=== PATIENT | female | born 1980 | race Caucasian/White ===

== ENCOUNTER 2019-03-17 19:32 | Emergency (ER) | payer OTHER, SELFPAY ==
[2019-03-17 19:49] VITALS: BP 93/52; PULSE 96; RESP 14; TEMP 37.3; O2SAT 97
[2019-03-17 20:00] VITALS: BP 118/72; PULSE 85; RESP 14; O2SAT 100
--- NOTE | 2019-03-17 20:07 | ED.GENADULT ---
HPI - General Adult General Chief complaint: Nausea/Vomiting/Diarrhea Stated complaint: vomitting, congested, headache, nauseous Source: patient Mode of arrival: ambulatory Limitations: no limitations History of Present Illness HPI narrative: Sore throat and cough, onset 8 days ago, nasal congestion x 5 days. Frontal pressure pain x 2 days, getting progressively worse, currently #10/10 associated with photophobia, assoc. with PND and clear - sometimes green nasal d.c. Nausea and vomiting x 10 today. C/o being thirsty, lightheaded with standing and not urinating since this AM. Quality: aching Pain Consistency: constant Related Data Home Medications Medication Instructions Recorded Confirmed levonorgestrel [Mirena] 1 device INTRAUTERINE DAILY 03/17/19 03/17/19 Allergies Allergy/AdvReac Type Severity Reaction Status Date / Time Penicillins Allergy Intermediate Hives Verified 03/17/19 19:47 Review of Systems Constitutional: Constitutional: Reports as per HPI Eyes: Eyes: Reports as per HPI ENT: Comments: no current sore throat. Respiratory: Respiratory: Denies dyspnea and Denies wheezing Gastrointestinal: Gastrointestinal: Denies abdominal pain and Denies diarrhea Genitourinary: Genitourinary: Denies dysuria Integumentary/Breasts: Skin/Breast: Denies rash Neurologic: Denies syncope Hematologic/Lymphatic: Hematologic/Lymphatic: Denies easy bruising PMFSH Past Medical History Medical History Cholecystectomy planned History of frequent headaches Family History Family History Mother Hypertension Father Hyperlipidemia Social History Social History Smoking packs per day: 1 Smoking cigarettes per day: 20.0 Years smoked: 26 Smoking pack-years: 26.00 Smoking status: Current every day smoker Exam Const: General: ill appearing HENMT: Ears: TM normal on the right and TM normal on the left General nose exam: no nasal discharge noted Face and sinus: sinus tenderness maxillary Mouth: Yes Normal oral and palatal mucosa present Throat: posterior oropharynx normal Eyes: Conjunctivae: conjunctivae normal Neck: Neck: no lymphadenopathy Chest: Chest palpation & inspection: normal inspection of the chest Resp: Auscultation: clear to auscultation bilaterally GI: GI Palp: Yes Soft to palpation, No Tenderness to palpation present (GI) and No Guarding due to palpation present (GI) : General: Yes no CVA tenderness Skin: General skin exam: normal color Rashes: no rashes Course Course Emergency Course: Dehydration - IVF Sinusitis - po doxycyline. headache on d.c. #7/10. Vital Signs Vital signs: Vital Signs Temperature 37.3 C 03/17/19 19:49 Pulse Rate 96 03/17/19 19:49 Respiratory Rate 14 03/17/19 19:49 Blood Pressure 93/52 L 03/17/19 19:49 Pulse Oximetry 97 03/17/19 19:49 Temperature 37.3 C 03/17/19 19:49 Pulse Rate 73 03/17/19 22:00 Respiratory Rate 15 03/17/19 22:13 Blood Pressure 108/59 L 03/17/19 22:00 Pulse Oximetry 97 03/17/19 22:13 Medical Decision Making Differential Diagnosis Differential Diagnosis: URI, sinusitis, migraine headache Vital Signs Vital Signs: Vital Signs Temperature 37.3 C 03/17/19 19:49 Pulse Rate 96 03/17/19 19:49 Respiratory Rate 14 03/17/19 19:49 Blood Pressure 93/52 L 03/17/19 19:49 Pulse Oximetry 97 03/17/19 19:49 Temperature 37.3 C 03/17/19 19:49 Pulse Rate 73 03/17/19 22:00 Respiratory Rate 15 03/17/19 22:13 Blood Pressure 108/59 L 03/17/19 22:00 Pulse Oximetry 97 03/17/19 22:13 Discharge Plan Discharge Clinical Impression: Sinusitis, acute maxillary Patient Disposition: Home, Self-Care Condition: Stable Instructions: Antibiotic Form, Sinusitis (ED) Additional Instructions: Sinus irrigatio
[2019-03-17] MEDS: ONDANSETRON INJ 4 MG/2 ML VIAL IV PUSH (20:12)
[2019-03-17] MEDS: SODIUM CHLORIDE 0.9% IV 1,000 ML 999 ML IV CONT ×2 (20:12→21:13)
[2019-03-17] MEDS: DOXYCYCLINE HYCLATE 100 MG TABLET PO (20:13)
[2019-03-17 21:00] VITALS: BP 105/69; PULSE 65; RESP 15; O2SAT 100
[2019-03-17 22:00] VITALS: BP 108/59; PULSE 73; RESP 14; O2SAT 100
[2019-03-17 22:13] VITALS: RESP 15; O2SAT 97
== END 2019-03-17 22:14 | disposition home or self-care (01) ==
PROVIDERS: Emergency Provider Family Medicine
DX: J01.00 Acute maxillary sinusitis, unspecified (principal)
CPT/HCPCS: 96361; 96374; 99283; 99284; A9270; J2405; J7030

== ENCOUNTER 2020-02-11 12:26 | Emergency (ER) | payer OTHER, SELFPAY ==
[2020-02-11 12:30] VITALS: BP 125/70; PULSE 74; RESP 13; TEMP 37.1; O2SAT 99
--- NOTE | 2020-02-11 12:36 | ED.BACK ---
HPI - Back Pain/Injury General Chief Complaint: Back Pain/Injury Stated Complaint: back pain Time Seen by Provider: 02/11/20 12:36 Source: patient and RN notes reviewed Mode of arrival: ambulatory Limitations: no limitations History of Present Illness HPI Narrative: patient presents with sudden onset of back pain yesterday. She feels like it is completely across her back but right greater than left. She denies any trauma. MD elicited complaint: back pain Pertinent past history: prior back pain and arthritis Onset (ago): day(s) (1) Timing: constant Severity: severe Similar Symptoms Previously: Yes Quality: dull, aching and spasming Location: right lower back and left lower back Radiation: buttocks Exacerbating factors: movement, walking and lifting Relieving factors: sitting upright Context: bending Associated symptoms: denies other symptoms Work related injury: No Related Data Home Medications Medication Instructions Recorded Confirmed levonorgestrel [Mirena] 1 device INTRAUTERINE DAILY 03/17/19 02/11/20 Allergies Allergy/AdvReac Type Severity Reaction Status Date / Time Penicillins Allergy Intermediate Hives Verified 06/24/19 11:58 Review of Systems Review of Systems: All systems reviewed & are unremarkable except as noted in HPI and below PMFSH Past Medical History Medical History (Updated 02/11/20 @ 13:15 by Feng Zhou MD) Degenerative disc disease History of frequent headaches Nicotine dependence, cigarettes, uncomplicated Surgical History Surgical History Hx of cholecystectomy Family History Family History Mother Hypertension Father Hyperlipidemia Social History Social History Smoking packs per day: 1 Smoking cigarettes per day: 20.0 Years smoked: 26 Smoking pack-years: 26.00 Smoking status: Current every day smoker Exam Const: General: healthy appearing and no acute distress Nutritional Appearance: well nourished Orientation/consciousness: patient oriented x3 Other: female nurse in room during exam HENMT: Head: normal to inspection Ears: external ears normal General nose exam: Normal external nose present Face and sinus: normal facial exam Mouth: Yes lip normal and Yes moist mucous membranes Eyes: Conjunctivae: conjunctivae normal Pupils: Equal, round and reactive pupils present EOM: EOMs intact bilaterally Neck: Neck: normal visual inspection Resp: Effort & Inspection: normal respiratory effort Auscultation: clear to auscultation bilaterally Cardio: Rate: regular rate Rhythm: regular rhythm GI: GI Palp: Yes Soft to palpation and No Tenderness to palpation present (GI) Auscultation: normal bowel sounds Back/Spine/Pelvis: Cervical Spine: cervical ROM normal Thoracic/Lumbar Spine: straight leg raise negative bilaterally, thoraco-lumbar ROM limited with lateral flexion to the left and with rotation to the left, thoraco-lumbar spasm on the right in the lower lumbar and No lumbar spinal tenderness Skin: General skin exam: normal color Rashes: no rashes Neuro: General: patient oriented x3, moves all extremities and no focal motor deficits Speech: normal speech Gait exam (Neuro): Normal gait present Extrem: General: normal to inspection and no clubbing, cyanosis or edema Psych: Appearance: grossly normal and well kempt Mental Status: mental status grossly normal Affect: normal affect Attitude: cooperative Thought content: Yes Normal thought content present Course Course Emergency Course: I explained the patient without any history of trauma that x-rays would not be beneficial. I recommend that she see primary care for further evaluation possible physical therapy. Vital Signs Vital signs: Vital Signs Temperature 37.1 C 02/11/20 12:30 Pulse Rate 74 02/11/20 12:30 Respiratory Rate 13
[2020-02-11] MEDS: ORPHENADRINE CITRATE 30 MG/ML 2 ML VIAL 60 MG IM (13:10)
[2020-02-11] MEDS: KETOROLAC (*BKC) 60 MG/2 ML VIAL IM (13:10)
[2020-02-11 13:18] VITALS: RESP 15; O2SAT 99
== END 2020-02-11 13:20 | disposition home or self-care (01) ==
PROVIDERS: Emergency Provider Emergency Medicine; PCP Nurse Practitioner Family
DX: S39.012A Strain of muscle, fascia and tendon of lower back, initial encounter (principal)
CPT/HCPCS: 96372; 99283; 99284; J1885; J2360

== ENCOUNTER 2020-02-18 15:56 | Outpatient (CLI) | payer OTHER, MEDICAID, SELFPAY ==
--- NOTE | ~2020-02-18 | XR_ITS ---
XR hip RT min 2V DATE: 02/18/2020 16:23 INDICATION: Chronic right hip pain TECHNIQUE: AP and lateral views of right hip COMPARISON: None FINDINGS: No fracture or dislocation, avascular necrosis or bone destruction of the right hip. Right hip joint space appears well preserved. The pubic symphysis and right sacroiliac joint are intact. IUD overlies the pelvis. IMPRESSION: Negative right hip Reviewed, dictated and finalized at location A. [facility] [employer]ER IMPRESSION: Negative right hip
--- NOTE | ~2020-02-18 | XR_ITS ---
XR lumbar spine 2-3V DATE: 02/18/2020 16:23 INDICATION: Chronic low back pain, right hip pain TECHNIQUE: AP, lateral and coned lateral lumbosacral views COMPARISON: 01/20/2015 lumbar spine FINDINGS: Surgical clips overlie the right upper quadrant, likely due to cholecystectomy. Surgical cl ips overlie the medial left upper quadrant as well. Mild levoscoliosis of the thoracic and lumbar spine. No fracture or bone destruction, spondylolisthesis of the lumbar spine. Lumbar and lumbosacral inters paces are well preserved. The sacroiliac joints appear normal. IMPRESSION: No significant abnormality of the lumbar spine. Reviewed, dictated and finalized at location A. [employer]
== END 2020-02-18 15:57 | disposition home or self-care (01) ==
LOC: CHSIMG 16:00
PROVIDERS: PCP Family Medicine; Visit Provider Nurse Practitioner Family
DX: M25.551 Pain in right hip (principal); M54.5 Low back pain
CPT/HCPCS: 72100; 73502